=== PATIENT | male | born 1980 ===

== ENCOUNTER 2025-04-14 05:52 | Day surgery (SDC) | payer OTHER ==
[2025-04-09 08:20] LABS: URINE APPEARANCE Clear; URINE BILIRRUBIN Negative (NEGATIVE); URINE BLOOD Large; URINE COLOR Yellow; URINE GLUCOSE Negative (NEGATIVE); URINE KETONE Trace (NEGATIVE); URINE LEUKOCYTE Negative; URINE NITRATE Negative; URINE PROTEIN Trace (NEGATIVE); URINE RBC 40.4 uL (0.0-20.8); URINE UROBILINOGEN 0.2 E.U./dl
[2025-04-09 08:27] LABS: URINE BACTERIA 2.3 uL (0.0-1933); URINE CAST 0.00 uL (0.0-1.40); URINE EPITHELIAL CELLS 1.0 uL (0.0-38.8); URINE WBC 1.2 uL (0.0-23.2)
[2025-04-09 08:33] LABS: BASO % 1.1 % (0.1-1.2); EOS # 0.28 (0.04-0.54); EOS % 3.7 % (0.7-7.0); LYMPH # 2.10 (1.18-3.74); LYMPH % 28.0 % (19.3-53.1); MEAN PLATELET VOLUME 10.10 fl (9.4-12.4); MONO # 0.46 (0.24-0.82); MONO % 6.1 % (4.7-12.5); NEUT # 4.56 (1.56-6.13); NEUT % 60.8 % (34.0-71.1); RED CELL DISTRIBUTION WIDTH 13.4 % (11.6-14.4)
[2025-04-09 08:41] LABS: BUN CREA RATIO 17.0 (7.0-25.0); CREATININE SERUM 1.09 mg/dL (0.70-1.30); GFR 74.19; GLUCOSE FASTING 97.0 mg/dL (65-100); OSMOLALITY SERUM 281.0 MOSM/KG (275-295)
[2025-04-09 08:56] VITALS: BP 135/83
[2025-04-09 09:49] LABS: INR 1.05
[~2025-04-14] VITALS: Ht 170.2 cm; Wt 78.5 kg
[~2025-04-14 05:52] MED LIST: METFORMIN HCL750 MG PO; ROSUVASTATIN CA10 MG PO; SYNTHROID112 MCG PO; XELPROS2.5 ML OP
[2025-04-14] MEDS ORDERED: BUPIVACAINE HCL 30 ML VIAL IJ ONE (09:00)
[2025-04-14] MEDS ORDERED: CEFTRIAXONE SODIUM 2,000 MG VIAL IV ONE (09:00)
[2025-04-14] MEDS ORDERED: FAMOTIDINE/PF 20 MG/2 ML VIAL IV ONE (09:00)
[2025-04-14] MEDS ORDERED: ENOXAPARIN SODIUM 40 MG/0.4 ML SYRINGE SUBCUTANEO ONE (09:00)
[2025-04-14] MEDS ORDERED: SUGAMMADEX SODIUM 200 MG/2 ML VIAL IV ONE (09:00)
[2025-04-14] MEDS ORDERED: METRONIDAZOLE/SODIUM CHLORIDE 500 MG/100 ML PIGGYBACK IV ONE (09:00)
[2025-04-14] MEDS ORDERED: MORPHINE SULFATE 4 MG/ML VIAL IV ONE ×2 (10:30→12:10)
[2025-04-14] MEDS ORDERED: CELEBREX200MG PO (10:33)
[2025-04-14] MEDS ORDERED: PERCOCET 5-3251 EACH PO (10:33)
[2025-04-14] MEDS ORDERED: POLY119PG PO (10:33)
[2025-04-14] MEDS ORDERED: NEURONTIN300 MG PO (10:33)
== END 2025-04-14 14:30 | disposition home or self-care (01) ==
LOC: CIR.AMB 05:52
PROVIDERS: ATTEND Surgery
DX: K40.90 Unilateral inguinal hernia, without obstruction or gangrene, not specified as recurrent (principal)
CPT/HCPCS: 49650; C1781